=== PATIENT | female | born 1955 | race Caucasian/White ===

== ENCOUNTER 2016-05-12 09:15 | Emergency (ER) | payer OTHER ==
[~2016-05-12] VITALS: Ht 177.8 cm; Wt 65.0 kg
[2016-05-12] MEDS ORDERED: NAPROSYN500 MG PO (10:19)
[2016-05-12] MEDS ORDERED: VALIUM5 MG PO (10:19)
[2016-05-12 10:44] VITALS: BP 151/78
== END 2016-05-12 10:44 | disposition home or self-care (01) ==
LOC: EME 09:15
DX: M62.838 Other muscle spasm (principal); H92.02 Otalgia, left ear
CPT/HCPCS: 99281; 99282